=== PATIENT | male | born 1990 | race African-American/Black ===

== ENCOUNTER 2025-08-16 16:41 | Emergency (ER) | payer MEDICAID ==
[~2025-08-16] VITALS: Ht 177.8 cm; Wt 73.0 kg
[2025-08-16 17:02] VITALS: O2SAT 99
[2025-08-16] MEDS ORDERED: AMOX1TAB16 MT (19:04)
[2025-08-16 19:22] VITALS: BP 106/66; PULSE 79; RESP 20; TEMP 36.8; O2SAT 99
== END 2025-08-16 19:23 | disposition home or self-care (01) ==
LOC: ER 16:41
DX: K04.7 Periapical abscess without sinus (principal); K02.9 Dental caries, unspecified
CPT/HCPCS: 99283